=== PATIENT | male | born 1985 | race Two or more races ===

== ENCOUNTER 2017-02-22 23:52 | Emergency (ER) | payer SELFPAY ==
[~2017-02-22] VITALS: Ht 165.1 cm; Wt 81.6 kg
[2017-02-23 00:05] VITALS: BP 127/78
[2017-02-23 00:27] VITALS: BP 127/78
--- NOTE | 2017-02-23 00:27 | Emergency Room Report ---
History of Present Illness General Chief Complaint: Behavioral Complaint Source: Patient, Family Member Present Illness HPI Is a 31-year-old male brought in by family for psychiatric evaluation. He was admitted to a 72 hour psychiatric hold about 2 weeks ago. Was discharged with prescription for Zyprexa and Celexa. His mom been giving his medication. Initially he was placed on a psychiatric hold because he appear to be psychotic. He was diagnosed with depression with psychotic feature with possible bipolar. He's been taking his medication. Family brought him in because yesterday he hasn't slept all day. He was sleeping tonight when they woke him up to bring him in. He did not have a car yesterday. Patient denies any symptom. He is agitated because he was sleeping comfortably. He denies any alcohol drugs. He refuse to give a urine sample. He refuse to get any blood work done. Denies suicidal thoughts or homicidal thought. Denies any hallucination or delusion. Allergies: Coded Allergies: No Known Allergies (Unverified , 02/23/17) Patient History Past Medical History: see triage record, old chart reviewed, depression Past Surgical History: none Family History: none Social History: other - Refuse to answer Immunizations: other Reviewed Nursing Documentation: PMH: Agreed, PSxH: Agreed Review of Systems ENT: Denies: sore throat Cardiovascular: Denies: chest pain, palpitations Gastrointestinal/Abdominal: Denies: diarrhea, nausea, vomiting Musculoskeletal: Denies: back problems Skin: Denies: rash Neurological: Denies: WOLFE, seizures All Other Systems: negative except mentioned in HPI Physical Exam Vital Signs Date Time Temp Pulse Resp B/P Pulse Ox O2 Delivery O2 Flow Rate FiO2 02/22/17 23:58 73 18 127/78 97 Room Air vitals normal Sp02 EP Interpretation: reviewed, normal General Appearance: alert/responsive, no apparent distress, non-toxic Head: normocephalic, atraumatic Eyes: PERRL, EOMI ENT: oropharynx normal Neck: supple/symm/no masses Respiratory: effort normal, no rhonchi, no wheezing Cardiovascular: no murmur, gallop, rub Gastrointestinal: non-tender, no mass, non-distended, no rebound/guarding, normal bowel sounds Musculoskeletal: gait & station normal Neurologic: oriented x3, sensory intact, motor strength/tone normal Skin: no rash, normal palpation Medical Decision Making Diagnostic Impression: Primary Impression: Behavioral disorder ER Course Patient with insomnia. This may be drug related. He refuse to give a urine sample for drug screen. Denies suicidal thought homicidal thought. I see no criteria for 5150. Explained this to his sister and brother. He expressed understanding. Patient was to go home. He will go home with family. Last Vital Signs Date Time Temp Pulse Resp B/P Pulse Ox O2 Delivery O2 Flow Rate FiO2 02/22/17 23:58 73 18 127/78 97 Room Air Status: improved Disposition: HOME, SELF-CARE Condition: Stable JUAN GRIGGS M.D. Feb 23, 2017 00:27
== END 2017-02-23 00:27 | disposition home or self-care (01) ==
LOC: EMR 23:58
DX: F91.9 Conduct disorder, unspecified (principal)
CPT/HCPCS: 99282